=== PATIENT | male | born 1970 | race African-American/Black ===

== ENCOUNTER 2016-11-18 18:25 | Inpatient (IN) | payer MEDICAID ==
[~2016-11-18] VITALS: Ht 175.3 cm; Wt 115.0 kg
--- NOTE | ~2016-11-18 | CT4 ---
[facility] A Service of [facility] RADIOLOGY TEXT RESULTS PATIENT: CELINE KURTZ LOCATION: [facility] 325-01 : 72 UNIT #: [id number] AGE: [address]: Jenna Kimbrough MD SEX: M ORDER DR: [id number] [facility] [address] [facility]. [place], [place] [address] [id number] MR#: [id number] Acc #: [id number] NAME: CELINE KURTZ : 1970 SEX: M STUDY DATE/TIME: 11/18/2016 22:14 UNIT: [facility] ROOM: STUDY DESCRIPTION: CT Abd and Pelv Wo Cont Attending Physician: Willy Veronica P.A.-C. Ordering Physician: Willy Veronica P.A.-C. Primary Care Physician: Primary Care Physician No MEDICAL IMAGING REPORT This report is preliminary unless electronic signature is present EXAM CT abdomen and pelvis out contrast DATE: 11/18/2016 HISTORY Abdominal pain, nausea, vomiting and fullness after eating popcorn last night, 11/17/2016. Hypertension and diabetes. COMPARISON None. PROCEDURE 3 mm noncontrast axial images through the pelvis. Enteric contrast not administered. Sagittal and coronal reformatted images were obtained. This CT exam was performed with one or more of the following radiation dose reduction techniques: automatic exposure control, adjustment of mA and/or kV according to patient size, and iterative reconstruction. FINDINGS There is abnormal thickening and inflammatory type stranding in the left upper quadrant the abdomen thought to be centered about the pancreatic tail, worrisome for acute pancreatitis. There is mild thickening of the left anterior renal fascia, as well. Lung bases are clear. The liver, gallbladder, spleen, adrenals and right kidney are normal. Low-density lesion is seen within the posterior left mid kidney measuring 1.3 cm (Hounsfield units -11), favored to represent a cyst. Appendix is normal. Unopacified bowel appears grossly nonthickened and noninflamed. [facility] A Service [facility] RADIOLOGY TEXT RESULTS PATIENT: CELINE KURTZ LOCATION: [facility] 325-01 : 72 UNIT #: [id number] AGE: [address]: Jenna Kimbrough MD SEX: M ORDER DR: PELVIS FINDINGS: Urinary bladder, prostate and rectum are normal. No pathologic pelvic adenopathy is seen. Shotty bilateral inguinal lymph nodes are thought to be benign and reactive. No acute osseous abnormality. IMPRESSION 1. Left upper quadrant inflammatory changes thought to represent acute pancreatitis centered about the pancreatic tail. Correlate with clinical symptoms and laboratory findings. 2. Left renal cyst. 3. Normal appendix. 4. No urinary tract stone or hydronephrosis. Dictated by... Mariel Moise M.D. THIS IS AN ELECTRONICALLY VERIFIED REPORT Mariel Moise M.D. at 11/19/2016 9:56 PM MANOLO/marisabel TD: 11/18/2016 23:03 JOB #: [id number] MEDICAL IMAGING REPORT Page 1 of 1 COPY
--- NOTE | ~2016-11-18 | DS ---
Unit #: [id number] #: [id number] Patient: CELINE KURTZ [id number] [address] [place], [place] [address] [id number] I MR#: [id number] NAME: CELINE KURTZ. ROOM: 218 Age: 45 Sex: M Admission Date: 11/19/2016 : 1970 Discharge Date: 11/21/2016 Attending Physician: Jenna Kimbrough M.D. Primary Care Physician: No Primary Care Physician DISCHARGE SUMMARY REASON FOR ADMISSION 1. Abdominal pain. 2. Pancreatitis. 3. Accelerated hypertension. HISTORY OF PRESENT ILLNESS/HOSPITAL COURSE The patient is a very pleasant 44-year-old male with a prior history of hypertension and diabetes, who off and on has been seen at various clinics secondary to lack of insurance as an outpatient. The patient has not really had any laboratory studies and/or evaluation in the past one year. He presented to the emergency room secondary to abdominal pain. In the emergency room he was noted to have an elevated lipase level and underwent a CT of the abdomen and pelvis which showed findings consistent with pancreatitis. His blood pressure was also noted to be 219/113 and thus he was admitted for the same. Initial creatinine level was also elevated at 2.5. Initial thought process was secondary to acute kidney injury and/or possible dehydration. Therefore, he was placed on IV fluids though his initial part of this hospital stay. However, this morning his creatinine currently stands at 2.3 and it seems likely that he has a chronic kidney disease stage 3/4 secondary to hypertension and diabetes. In regard to his pancreatitis, initially he was n.p.o. and transitioned to clears. His lipase level did start decreasing initially and it was greater than 800. This morning it currently stands at 103. He has tolerated a regular breakfast this morning. He now states that he has no abdominal pain. He did undergo routine laboratory studies in regard to the workup for pancreatitis. His triglyceride level was normal at 145. He did also undergo an ultrasound of the gallbladder to rule out gallstone pancreatitis. It was normal as well. He denied alcohol use. At this point in time it seems as though it is likely idiopathic in origin. In regard to the patient's elevated blood pressure, his lisinopril was discontinued secondary to elevated creatinine. He was placed on labetalol as well as Norvasc and clonidine. His blood pressure systolic is now ranging in the upper 140s. He was asked to continue the current regimen and buy an pklf-yst-kkaizrt blood pressure machine to start checking his blood pressure on a fereo-bdn-kwe basis and follow up with a new primary care physician in approximately 7-10 days. He expressed understanding. In regard to the patient's history of diabetes, his A1c this hospital Unit #: [id number] #: [id number] Patient: CELINE KURTZ admission was 7.9%. At the time of discharge his metformin will be discontinued. He will be placed on Amaryl 2 mg p.o. b.i.d. with meals at the time of discharge. He will also be given a prescription for Zocor 40 mg p.o. daily secondary to his prior history of diabetes, as well as his LDL being at 104, with goal LDL of less than 70. The patient is currently clonically stable for discharge from the hospital. He will follow up with Dr. Olga Edward of [facility] in approximately 7-10 days. FINAL DISCHARGE DIAGNOSES 1. Accelerated hypertension. 2. Diabetes. 3. Chronic kidney disease stage 3/4. Likely secondary to poorly controlled hypertension and diabetes. 4. Mild hyperlipidemia, LDL 104. Goal less than 70. 5. Acute pancreatitis, now resolving. FINAL DISCHARGE MEDICATIONS 1. Labetalol 200 mg p.o. b.i.d. 2. Norvasc 10 mg p.o. daily. 3. Clonidine 0.1 mg p.o. b.i.d. 4. Zocor 40 mg p.o. daily. 5. Aspirin 81 mg p.o. daily. FOLLOWUP Olga Edward M.D. at [facility] in 7-10 days. Repeat CMP, lipase, CBC as well as followup in regard to blood pressure management. Dictated by... Taqueria Zheng/jerry TD: 11/24/2016 08:11 JOB #: [id number] DISCHARGE SUMMARY Page 1 of 1 X Jenna Kimbrough MD X DISCHARGE SUMMARY
--- NOTE | ~2016-11-18 | HP ---
Unit #: [id number] #: [id number] Patient: CELINE KURTZ [id number] [address] [place], [place] [address] [id number] MR#: [id number] NAME: CELINE KURTZ. ROOM: 325 Age: 45 Sex: M Admission Date: 11/19/2016 : 1970 Attending Physician: Marisela Weiner M.D. Primary Care Physician: Miri Primary Care Physician HISTORY AND PHYSICAL CHIEF COMPLAINT Pancreatitis, kidney disease, accelerated hypertension. HISTORY This 44-year-old male with AODM, hypertension, and previously history of hyperlipidemia, is admitted for pancreatitis. The patient states that he was well until two days ago when after eating he developed epigastric pain, nausea and then an episode of emesis. His discomfort improved yesterday but he was still not back to normal. He has never had similar symptoms in the past. Did feel feverish two days ago with chills. He presents to this emergency department late last evening with a blood pressure of 219/113. Labs are notable for kidney disease, which could be chronic versus acute, along with pancreatitis. A CT scan also shows inflammatory changes around the pancreatic head. The patient denies alcohol abuse. PAST MEDICAL HISTORY 1. AODM diagnosed 2005. 2. Essential hypertension. 3. Treatment for hyperlipidemia in the past. 4. Obstructive sleep apnea. 5. Right wrist fracture requiring surgery. ALLERGIES None. HOME MEDICATIONS Metformin 500 mg b.i.d.; lisinopril possibly 20 mg daily. FAMILY HISTORY Hypertension and diabetes mellitus. SOCIAL HISTORY The patient lives with his . He is a lifelong nonsmoker and seldom drinks alcohol. REVIEW OF SYSTEMS Notable for abdominal pain, nausea, vomiting, diabetes, hypertension, sleep apnea, wrist surgery. All other systems were reviewed and are otherwise negative. PHYSICAL EXAMINATION GENERAL: Pleasant, moderately obese, 45-year-old male currently in no Unit #: [id number] #: [id number] Patient: CELINE KURTZ acute distress. VITAL SIGNS: Temperature 99.8, pulse 100, respirations 18, blood pressure 219/113, O2 saturation is 100% on room air. HEENT: Eyes PERRLA. Extraocular muscles are intact. Pharynx is benign. NECK: Supple without adenopathy or thyromegaly. CHEST: Clear. CARDIAC: Normal S1 and S2 without S3, S4, or murmur. ABDOMEN: Bowel sounds are present. No hepatosplenomegaly, tenderness or masses. Abdomen at this time is completely benign. EXTREMITIES: Without edema. Pedal pulses are present. No ulcers on the feet. NEUROLOGIC: Patient is awake, alert and oriented. His cranial nerves are intact. He has equal strength throughout. DIAGNOSTIC STUDIES LABORATORY STUDIES: Hematocrit is 36.6, white blood count 14.8, normal platelet count. SMA 12 - glucose 202, BUN 32, creatinine 2.5, up from a BUN of 20, creatinine 1.1 eleven years ago. AST is 59, lipase is 657. Urinalysis positive protein, 1+ blood without significant white or red cells. IMAGING STUDIES: CT scan shows inflammatory changes left upper quadrant around the pancreatic tail. Left renal cyst. ASSESSMENT 1. Acute pancreatitis, rule out gallbladder pancreatitis, rule out hypertriglyceridemia. 2. Acute kidney injury versus chronic kidney disease. 3. Accelerated hypertension. 4. AODM. 5. Obstructive sleep apnea. PLANS 1. Obtain urinalysis and check post void residual. 2. Aggressive IV fluids, supportive treatment. Will check gallbladder ultrasound and triglyceride level in the morning, along with repeating all labs in the morning. 3. Blood pressure control. I would hold lisinopril for now given elevated creatinine. 4. DVT prophylaxis. 5. Further workup and consultants depending on above. Dictated by Taqueria Jara/tasia TD: 11/19/2016 05:55 JOB #: [id number] Unit #: [id number] #: [id number] Patient: CELINE KURTZ HISTORY AND PHYSICAL Page 1 of 1 X Marisela Weiner MD HISTORY AND PHYSICAL
--- NOTE | ~2016-11-18 | US67 ---
[facility] A Service of [facility] RADIOLOGY TEXT RESULTS PATIENT: CELINE KURTZ LOCATION: [facility] 325-01 : 72 UNIT #: [id number] AGE: [address]: Jenna Kimbrough MD SEX: M ORDER DR: [id number] [facility] [address] [facility]. [place], [place] [address] [id number] MR#: [id number] #: [id number] NAME: CELINE KURTZ : 1970 SEX: M STUDY DATE/TIME: 11/19/2016 7:56 UNIT: [address] ROOM: [facility] STUDY DESCRIPTION: US Gallbladder Attending Physician: Jenna Kimbrough M.D. Ordering Physician: Marisela Weiner M.D. Primary Care Physician: Primary Care Physician No MEDICAL IMAGING REPORT This report is preliminary unless electronic signature is present EXAM Gallbladder ultrasound 11/19/2016 HISTORY Right upper quadrant abdominal pain and vomiting for 2 days. Diabetes. FINDINGS The liver is homogeneous in echotexture and demonstrates no cystic or solid mass lesions. The intra and extrahepatic bile ducts are not dilated. The gallbladder is normal with no evidence of cholelithiasis, wall thickening or pericholecystic fluid. The common duct measures 3 mm. The pancreas is normal. The right kidney measures 10.8 cm in greatest diameter. There is no evidence of hydronephrosis. There is increased right renal cortical echogenicity characteristic of medical renal disease. Clinical correlation recommended. IMPRESSION 1. Normal gallbladder. 2. Increased right renal cortical echogenicity characteristic of medical renal disease. Dictated by... Francisco Sherman M.D. THIS IS AN ELECTRONICALLY VERIFIED REPORT Francisco Sherman M.D. at 11/20/2016 7:33 AM RODRIGUEZ/nanir TD: 11/19/2016 13:30 JOB #: [id number] MEDICAL IMAGING REPORT Page 1 of 1 COPY
[~2016-11-18 18:25] MED LIST: LORTAB 5/500 TA1 TA1 PO; MEDROL4 MG/DOSE- PO
[2016-11-18 18:57] LABS: BASOPHIL# 0.1 X10e3 (0-0.3); BASOPHIL% 0.4 % (0-2.5); EOSINOPHIL# 0.1 X10e3 (0-0.7); EOSINOPHIL% 0.5 % (0.0-7.0); HEMATOCRIT 36.6 % (38.0-50.0); HEMOGLOBIN 12.6 gm/dL (13.0-16.0); LYMPHOCYTE# 1.8 X10e3 (1.0-3.5); LYMPHOCYTE% 11.9 % (17.0-45.0); MEAN CELL VOLUME 84.3 FL (83-96); MEAN CORPUSCULAR HGB CONC 34.4 g/dL (30-36); MEAN PLATELET VOLUME 6.8 FL (6.5-11.5); MONOCYTE# 1.2 X10e3 (0-1.0); MONOCYTE% 8.4 % (3.0-12.0); NEUTROPHIL# 11.7 X10e3 (1.5-7.1); NEUTROPHIL% 78.8 % (40-75); PLATELET COUNT 268 X10e3 (140-420); RED BLOOD COUNT 4.34 X10e (3.90-5.60); RED CELL DISTRIBUTION WIDTH 14.6 % (11.0-15.5); WHITE BLOOD COUNT 14.8 X10e3 (4.0-10.5)
[2016-11-18 19:03] LABS: DIFF IND NO
[2016-11-18 19:41] LABS: ALBUMIN SERUM 4.2 g/dL (3.5-5.0); BILIRUBIN, DIRECT 0.1 mg/dL (0.0-0.2); BILIRUBIN,INDIRECT 0.2 mg/dL (0.0-0.9); BILIRUBIN,TOTAL 0.3 mg/dL (0.2-2.0); BUN/CREATININE RATIO 12.8; CALCIUM SERUM 8.9 mg/dL (8.4-10.2); CREATININE SERUM 2.5 mg/dL (0.6-1.4); GLOM FILT RATE Estimated 35.1 mL/min (>60); PROTEIN TOTAL SERUM 7.8 g/dL (6.0-8.3)
[2016-11-18 23:02] LABS: URINE SOURCE CLEAN CATCH
[2016-11-18 23:22] LABS: URINE APPEARANCE CLEAR; URINE BILIRUBIN NEG (NEG); URINE BLOOD 1+ (NEG); URINE COLOR YELLOW; URINE GLUCOSE NEG (NEG); URINE KETONE NEG (NEG); URINE LEUKOCYTE ESTERASE NEG (NEG); URINE NITRATE NEG (NEG); URINE PROTEIN 3+ (NEG); URINE SPECIFIC GRAVITY 1.013 (1.003-1.035); URINE UROBILINOGEN 0.2 MG/DL (NEG)
[2016-11-18 23:26] LABS: U HYALINE CASTS AUWI 0-2 /[LPF]; URBCS1 AUWI 0-2 /[HPF] (0-2); URINE BACTERIA AUWI NEG (NEGATIVE); URINE SQUAMOUS EPITHELIAL CELL NONE SEEN /[HPF]; UWBCS1 AUWI 0-2 (0-5)
[2016-11-18 23:29] LABS: CULTURE INDICATED? NO
[2016-11-19] MEDS ORDERED: LISINOPRIL20 MG PO (02:12)
[2016-11-19] MEDS ORDERED: METFORMIN HCL500 M1 PO (02:12)
[2016-11-19 05:23] LABS: BASOPHIL# 0.1 X10e3 (0-0.3); BASOPHIL% 0.5 % (0-2.5); EOSINOPHIL% 0.3 % (0.0-7.0); HEMATOCRIT 34.4 % (38.0-50.0); HEMOGLOBIN 11.4 gm/dL (13.0-16.0); LYMPHOCYTE# 1.6 X10e3 (1.0-3.5); LYMPHOCYTE% 11.1 % (17.0-45.0); MEAN CELL VOLUME 84.5 FL (83-96); MEAN CORPUSCULAR HGB CONC 33.1 g/dL (30-36); MEAN PLATELET VOLUME 7.1 FL (6.5-11.5); MONOCYTE# 1.3 X10e3 (0-1.0); MONOCYTE% 9.4 % (3.0-12.0); NEUTROPHIL# 11.2 X10e3 (1.5-7.1); NEUTROPHIL% 78.7 % (40-75); PLATELET COUNT 240 X10e3 (140-420); RED BLOOD COUNT 4.06 X10e (3.90-5.60); RED CELL DISTRIBUTION WIDTH 14.4 % (11.0-15.5); WHITE BLOOD COUNT 14.3 X10e3 (4.0-10.5)
[2016-11-19 05:27] LABS: DIFF IND NO
[2016-11-19 05:40] LABS: PARTIAL THROMBOPLASTIN TIME 26.1 SECONDS (23.5-31.3); PROTHROMBIN TIME (PATIENT) 11.3 SECONDS (10.0-11.7)
[2016-11-19 06:36] LABS: ALBUMIN SERUM 3.4 g/dL (3.5-5.0); BILIRUBIN,TOTAL 0.3 mg/dL (0.2-2.0); BUN/CREATININE RATIO 11.9; CALCIUM SERUM 8.3 mg/dL (8.4-10.2); CREATININE SERUM 2.1 mg/dL (0.6-1.4); GLOM FILT RATE Estimated 43.4 mL/min (>60); POTASSIUM 4.1 mmol/L (3.5-5.1); PROTEIN TOTAL SERUM 6.5 g/dL (6.0-8.3)
[2016-11-20 05:24] LABS: HEMATOCRIT 33.6 % (38.0-50.0); HEMOGLOBIN 11.1 gm/dL (13.0-16.0); MEAN CELL VOLUME 85.2 FL (83-96); MEAN CORPUSCULAR HEMOGLOBIN 28.2 PG (28-34); MEAN CORPUSCULAR HGB CONC 33.1 g/dL (30-36); MEAN PLATELET VOLUME 7.3 FL (6.5-11.5); RED BLOOD COUNT 3.95 X10e (3.90-5.60); RED CELL DISTRIBUTION WIDTH 14.4 % (11.0-15.5); WHITE BLOOD COUNT 10.7 X10e3 (4.0-10.5)
[2016-11-20 06:03] LABS: ALBUMIN SERUM 3.2 g/dL (3.5-5.0); BILIRUBIN,TOTAL 0.5 mg/dL (0.2-2.0); BUN/CREATININE RATIO 9.54; CALCIUM SERUM 8.6 mg/dL (8.4-10.2); CREATININE SERUM 2.2 mg/dL (0.6-1.4); MAGNESIUM 1.7 mg/dL (1.6-3.0); POTASSIUM 4.2 mmol/L (3.5-5.1); PROTEIN TOTAL SERUM 6.2 g/dL (6.0-8.3)
[2016-11-21 06:40] LABS: ALBUMIN SERUM 3.2 g/dL (3.5-5.0); BILIRUBIN,TOTAL 0.5 mg/dL (0.2-2.0); BUN/CREATININE RATIO 10.43; CALCIUM SERUM 8.7 mg/dL (8.4-10.2); CREATININE SERUM 2.3 mg/dL (0.6-1.4); GLOM FILT RATE Estimated 38.9 mL/min (>60); POTASSIUM 4.5 mmol/L (3.5-5.1); PROTEIN TOTAL SERUM 6.2 g/dL (6.0-8.3)
[2016-11-21] MEDS ORDERED: LABETALOL HCL200 MG PO (11:52)
[2016-11-21] MEDS ORDERED: NORVASC10 MG PO (11:53)
[2016-11-21] MEDS ORDERED: CATAPRES0.1 M1 (11:54)
[2016-11-21] MEDS ORDERED: CATAPRES0.1 M1 PO (11:55)
[2016-11-21] MEDS ORDERED: AMARYL2 MG PO (11:57)
[2016-11-21] MEDS ORDERED: ZOCOR PO (11:59)
[2016-11-21] MEDS ORDERED: ASPIRIN81 MG PO (12:00)
== END 2016-11-21 12:20 | disposition home or self-care (01) | DRG 439 ==
LOC: CED 18:25 → CEDOF 11-19 00:15 → C3A PCU 11-19 00:20 → CED 11-19 00:20 → CEDOF 11-19 00:20 → C3A PCU 11-19 02:14 → CEDOF 11-19 02:14 → C3A PCU 11-19 07:51 → C2A 11-20 16:47
PROVIDERS: Family Medicine; Internal Medicine
DX: K85.90 Acute pancreatitis without necrosis or infection, unspecified (principal); N18.4 Chronic kidney disease, stage 4 (severe); E11.22 Type 2 diabetes mellitus with diabetic chronic kidney disease; I16.1 Hypertensive emergency; I12.9 Hypertensive chronic kidney disease with stage 1 through stage 4 chronic kidney disease, or unspecified chronic kidney disease; Z79.84 Long term (current) use of oral hypoglycemic drugs; E86.0 Dehydration; E78.5 Hyperlipidemia, unspecified; G47.33 Obstructive sleep apnea (adult) (pediatric)
CPT/HCPCS: 36415; 74176; 76705; 80048; 80053; 80061; 80076; 81003; 82150; 82947; 83036; 83690; 83735; 84478; 85025; 85027; 85610; 85730; 96361; 96374; 96375; 99285; J0360; J1170; J1650; J1815; J2405; J3475